=== PATIENT | female | born 1945 | race Caucasian/White ===

== ENCOUNTER 2019-12-04 16:39 | Outpatient (CLI) | payer MEDICARE, SELFPAY | END 2019-12-04 16:40 | disposition home or self-care (01) | LOC: LAB 17:13 | PROVIDERS: PCP Family Medicine; Visit Provider Family Medicine | DX: L97.909 Non-pressure chronic ulcer of unspecified part of unspecified lower leg with unspecified severity (principal) | CPT/HCPCS: 87070; 87077; 87186 ==